=== PATIENT | female | born 1985 | race Caucasian/White ===

== ENCOUNTER 2024-09-12 12:18 | Emergency (ER) | payer MEDICAID ==
[~2024-09-12] VITALS: Ht 180.3 cm; Wt 94.7 kg
[~2024-09-12 12:18] MED LIST: DIPH-423 PO; PRED20TA PO; TRAZ50TA54 PO
[2024-09-12 12:50] VITALS: BP 130/85; PULSE 85; RESP 18; O2SAT 98
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
[2024-09-12] MEDS ORDERED: HYDR-3973 PO (14:49)
[2024-09-12] MEDS ORDERED: METH-798 PO (14:49)
[2024-09-12] MEDS ORDERED: MELO-102 PO (14:49)
[2024-09-12] MEDS ORDERED: PRED20TA PO (14:50)
== END 2024-09-12 15:05 | disposition home or self-care (01) ==
LOC: ER 12:19
DX: M54.2 Cervicalgia (principal); F12.90 Cannabis use, unspecified, uncomplicated; F11.90 Opioid use, unspecified, uncomplicated; Z88.8 Allergy status to other drugs, medicaments and biological substances; Z79.899 Other long term (current) drug therapy; V89.2XXA Person injured in unspecified motor-vehicle accident, traffic, initial encounter; Y93.89 Activity, other specified; Y92.89 Other specified places as the place of occurrence of the external cause; Y99.8 Other external cause status
CPT/HCPCS: 72050; 99283